=== PATIENT | female | born 1945 | race Caucasian/White ===

== ENCOUNTER 2020-07-02 11:05 | Inpatient (IN) | payer MEDICARE ==
[~2020-07-02] VITALS: Ht 157.5 cm; Wt 70.5 kg
--- NOTE | ~2020-07-02 | HEMODYNAMI ---
PATIENT:RAMON LAMBERT MEDICAL RECORD: [id number] : 43 LOCATION:[facility] D.2116 ADMISSION DATE: 07/02/20 Generatedon:07/03/202012:08 Patient name: RAMON LAMBERT Patient #: [id number] SSN: [id number] : 1945 Date of study: 07/03/2020 Page: Of Hemodynamic Procedure Report Patient Data Patient Demographics First Name: RAMON Gender: Female Last Name: PETRA : 1945 Patient #: [id number] Age: 75 year(s) Race: Unknown SSN: [id number] Additional ID: [id number] Contact details [address]: [address] [place] [address] State: [place] City: [place] Zip code: [address] Past Medical History Allergies Allergen Reaction Date Comments Reported Other allergy 07/03/2020 TRAMADOL, Admission Admission Data Admission Date: 07/02/2020 Admission Time: 14:34 Arrival Date: 07/03/2020 Arrival Time: 0:00 Admit Source: Other Insurance Payor: Medicare Room #: D.2116 Height (in.): 61.81 BSA: 1.71 (m2) Height (cm.): 157 BMI: 28.4 (kg/m2) Weight (lbs.): 154.32 Weight (kg.): 70 Lab Results Lab Result Date: 07/03/2020 Lab Result Time: 0:00 Biochemistry Name Units Result Min Max BUN mg/dl 14 --(--*-)-- 7 18 Creatinine mg/dl 0.8 --(-*--)-- 0.6 1.3 eGFR ml/min 73.97225 *-(----)-- 90 120 NONAFRICAN CBC Name Units Result Min Max Hemoglobin g/dl 13.5 --(*---)-- 13.5 17.5 Procedure Procedure Types Cath Procedure Diagnostic Procedure LHC LHC w/Coronaries Procedure Description Procedure Date Procedure Date: 07/03/2020 Procedure Start Time: 11:58 Procedure End Time: 12:06 Procedure Staff Name Function Troy Wynn MD Performing Physician Nereida Teresa RT Monitor Sarah Rucker RN Nurse Heydi Nava RT Scrub Indication Chest pain Procedure Data Cath Procedure Fluoroscopy Diagnostic fluoroscopy Total fluoroscopy Time: 0.9 time: 0.9 min min Diagnostic fluoroscopy Total fluoroscopy dose: 242 dose: 242 mGy mGy Contrast Material Contrast Material Type Amount (ml) Isovue 300 50 Entry Location Entry Primary Successful Side Size Upsize Upsize Entry Closure Succes sful Closure Location (Fr) 1 (Fr) 2 (Fr) Remarks Device Remarks Femoral Right 5 Fr Exoseal artery Estimated blood loss: 10 ml Diagnostic catheters Device Type Used For End Catheter Placement MULTIPACK JL 4.0 5Fr Procedure catheter MULTIPACK 3DRC 5Fr Procedure catheter MULTIPACK Pigtail 5 Fr Ventriculography catheter Procedure Complications No complications Procedure Medications Medication Administration Route Dosage 0.9% NaCl I.V. 100 ml/hr Lidocaine 2% added to field 20 Heparin Flush Bag added to field 2 bags (1000units/500ml NS) Oxygen NC 2 l/min Versed I.V. 1 mg Fentanyl I.V. 50 mcg Versed I.V. 0.5 mg Fentanyl I.V. 25 mcg Hemodynamics Rest BSA: 1.71 (m2) HGB: 13.5 (g/dl) O2 Consumption: Estimated: 148.28 (ml/min) O2 Co nsumption indexed: Estimated:86.71 (ml/min/m) Heart Rate: 59 (bpm) Pressure Samples Time Site Value (mmHg) Purpose Heart Use Rate(bpm) 12:02 LV 99/6,14 Snapshot 64 12:02 AO 107/53(79) Pullback 65 12:02 LV 105/4,14 Pullback 65 Gradients Valve Time Site 1 Site 2 Mean SEP/DFP Peak To Heart Use (mmHg) (sec/min) Peak Rate (mmHg) (bpm) Aortic 12:02 LV AO 0 17 0 65 105/4,14 107/53(79) Calculations Valve P-P Mean Valve Index Valve Source Name Gradient Area Flow (cm2) Aortic 0 0 0 0 Snapshots Pre Cath Intra NCS Post Cath Vital Signs Time Heart Resp SPO2 etCO2 NIBP (mmHg) Rhythm Pain Sedation Rate (ipm) (%) (mmHg) Status Level (bpm) 11:45:29 68 26 97 0 127/73(114) NSR 0 (11) 10(A) , No pain 11:49:41 62 17 96 28.7 130/82(110) NSR 0 (11) 10(A) , No pain 11:53:57 60 15 99 33.2 128/75(93) NSR 0 (11) 10(A) , No pain 11:58:13 62 9 92 24.9 109/72(85) NSR 0 (11) 9(A) , No pain 12:02:17 72 12 93 12.8 114/83(93) NSR 0 (11) 9(A) , No pain 12:06:31 61 9 91 9 102/64(76) NSR 0 (11) 10(A) , No pain Medications Time Medication Route Dose Verified Delivered Reason Notes Effe ctiveness by by 11:54:12 0.9% NaCl I.V. 100 Troy Sarah used for ml/hr Tianna Chaim procedure MD ARRIAGA 11:54:22 Lidocaine 2% added 20ml Troy Sarah for local to vial Tianna Chaim anesthetic field MD RARIAGA 11:54:34 Heparin Flush added 2 Troy Sarah used for Bag to bags Tianna Chaim procedure (1000units/500ml field VAZQUEZ RN NS) 11:54:44 Oxygen NC 2 Troy Sarah for low 02 l/min Tianna Chaim sats MD ARRIAGA 11:58:41 Versed I.V. 1 mg Troy Sarah for Tianna Chaim sedation MD ARRIAGA 11:58:47 Fentanyl I.V. 50 Troy Sarah for mcg Tianna Chaim sedation MD ARRIAGA 12:02:05 Versed I.V. 0.5 Troy Sarah for mg Tianna Chaim sedation MD ARRIAGA 12:02:16 Fentanyl I.V. 25 Troy Sarah for mcg Tianna Chaim sedation MD ARRIAGAcoin purse framer Log Time Note 11:33:14 Arrival Date: 07/03/2020 12:00:00 AM 11:33:16 Admit Source: Other 11:33:20 Insurance Payor : Medicare 11:33:26 Patient Height : 61.81 inches 11:33:31 Patient Weight : 154.32 lbs 11:34:03 Lab Result : Hemoglobin 13.5 g/dl 11:34:03 Lab Result : eGFR NONAFRICAN 73.95499 ml/min 11:34:03 Lab Result : BUN 14 mg/dl 11:34:03 Lab Result : Creatinine 0.8 mg/dl 11:34:10 Diagnostic Cath Status : Urgent 11:35:04 Indication : Chest pain 11:35:19 Procedure Status Urgent Heart Cath (IP). 11:35:22 Heydi Nava RT(R) (CV) sent for patient. Start room use. 11:35:24 Time tracking: Regular hours (M-F 7:00 - 5:00) 11:35:29 Plan of Care:Hemodynamics will remain stable., Cardiac rhythm will remain stable., Comfort level will be maintained., Respiratory function will remain adequate., Patient/ family verbilizes understanding of procedure., Procedure tolerated without complication., Recovers from procedure without complications.. 11:35:35 Patient received from Med II to CCL 1 Alert and oriented. Tansferred to table in Supine position. 11:35:37 Warm blankets applied, and fransisco hugger turned on for patient comfort. 11:35:37 Correct patient and procedure confirmed by team. 11:35:38 ECG and BP/O2 sat monitors applied to patient. 11:35:54 H&P Date Dictated: 07/02/2020 Within 30 days and on chart., H&P Addendum completed by physician on day of procedure. (MUST COMPLETE FOR ALL OUTPATIENTS). 11:35:56 Pre-procedure instructions explained to patient. 11:35:59 Family in patients room. 11:36:02 Patient NPO since Midnight. 11:36:34 Patient allergic to Other allergyTRAMADOL, 11:36:38 Is the patient allergic to Iodine/contrast media? No. 11:36:44 Is patient on blood thinner?No 11:37:03 Patient diabetic? No. 11:37:08 Snore? Unknown 11:37:10 Sleep apnea? No 11:37:29 Patient pain scale 0/10 ?. 11:37:39 IV left forearm D/C'd due to infiltration. 11:37:43 Lab results completed and on chart. 11:37:52 Right Radial & Right Groin area was prepped with chlora-prep and draped in sterile fashion 11:37:53 Sharps counted by scrub and verified by R.N. 11:37:58 Physician paged 11:39:40 Use device set Femoral Dx 11:44:20 Vital chart was started 11:44:21 Baseline sample Acquired. 11:44:25 Rhythm: sinus rhythm 11:44:27 Full Disclosure recording started 11:53:38 Zero performed for pressure channel P1 11:54:12 0.9% NaCl 100 ml/hr I.V. was administered by Sarah Rucker RN; used for procedure; Verbal order read back and verified. 11:54:22 Lidocaine 2% 20ml vial added to field was administered by Sarah Rucker RN; for local anesthetic; Verbal order read back and verified. 11:54:34 Heparin Flush Bag (1000units/500ml NS) 2 bags added to field was administered by Sarah Rucker RN; used for procedure; Verbal order read back and verified. 11:54:44 Oxygen 2 l/min NC was administered by Sarah Rucker RN; for low 02 sats; Verbal order read back and verified. 11:57:52 --------ALL STOP TIME OUT------ 11:57:53 Final Timeout: patient, procedure, and site verified with staff and physician. All members of the team are in agreement. 11:57:56 Right groin site verified by team. 11:58:06 Fire Safety Assessment: A--An alcohol-based skin anteseptic being used preoperatively., C--Open oxygen or nitrous oxide is being used., D--An ESU, laser, or fiber-optic light is being used. 11:58:11 Physical assessment completed. ASA score P 2 - A patient with mild systemic disease as per Troy Wynn MD. 11:58:15 2) 60-89 Mildly reduced kidney function, and other findings (as for stage 1) point to kidney disease. 11:58:21 Maximum allowable contrast dose (3.7 X eGFR X 0.75)220 ml. 11:58:30 Sedation plan: IV Moderate Sedation Medication:Versed, Fentanyl 11:58:36 Procedure started. 11:58:41 Versed 1 mg I.V. was administered by Sarah Rucker RN; for sedation; Verbal order read back and verified. 11:58:47 Fentanyl 50 mcg I.V. was administered by Sarah Rucker RN; for sedation; Verbal order read back and verified. 11:58:55 Local anesthetic to right femoral artery with Lidocaine 2% by Troy Wynn MD.INITIAL ACCESS ONLY 11:59:06 A 5 Fr sheath was inserted into the Right Femoral artery 11:59:17 J wire advanced. 11:59:21 ACIST Syringe (37428) opened to sterile field. 11:59:22 Bag Decanter (2002S) opened to sterile field. 11:59:22 Medline Cath Pack ([id number]) opened to sterile field. 11:59:29 A MULTIPACK JL 4.0 5Fr catheter was advanced over the wire and used for Procedure. 11:59:31 ACIST Hand Control (16056) opened to sterile field. 11:59:32 ACIST Manifold (34771) opened to sterile field. 11:59:32 DIAGNOSTIC Multipack 5Fr catheter set (EI6764) opened to sterile field. 11:59:34 SHEATH 5FR Somers (WLU640) opened to sterile field. 11:59:35 EMERALD Guide Wire (470-560) opened to sterile field. 11:59:50 LCA angiography performed. 12:00:08 Catheter removed. 12:00:17 A MULTIPACK 3DRC 5Fr catheter was advanced over the wire and used for Procedure. 12:00:42 RCA angiography performed. 12:01:23 Catheter removed. 12:01:37 A MULTIPACK Pigtail 5 Fr catheter was advanced over the wire and used for Ventriculography. 12:01:44 EXOSEAL 5Fr (EX500) opened to sterile field. 12:01:47 Tegaderm 4 x 4 (1626W) opened to sterile field. 12:02:05 Versed 0.5 mg I.V. was administered by Sarah Rucker RN; for sedation; Verbal order read back and verified. 12:02:16 Fentanyl 25 mcg I.V. was administered by Sarah Rucker RN; for sedation; Verbal order read back and verified. 12:02:52 EF : 55 % 12:03:02 LV gram done using RAMIREZ 12:03:05 Catheter removed. 12:03:45 Sheath removed intact; hemostasis achieved with Exoseal to the Right Femoral artery. 12:03:48 Procedure ended.(Physican Out) 12:04:02 Fluoroscopy time 00.90 minutes. 12:04:15 Fluoroscopy dose: 242 mGy 12:04:15 Flurop Dose total: 242 12:04:21 Dose Area Product 34285 mGy/cm. 12:04:28 Contrast amount:Isovue 300 50ml. 12:04:32 Maximum allowable dose exceeded? No. 12:04:36 Insertion/operative site no bleeding no hematoma. 12:04:43 Post right femoral artery:stable 12:04:48 Post-procedure physical assessment completed. ASA score P 2 - A patient with mild systemic disease as per Troy Wynn MD. 12:04:52 Post procedure rhythm: unchanged. 12:04:58 Estimated blood loss: 10 ml 12:05:00 Post procedure instruction explained to patient.Patient verbalizes understanding. 12:05:33 Procedure and supply charges have been captured, reviewed, submitted and are correct. 12:06:00 Procedure Complication : No complications 12:06:08 Vital chart was stopped 12:06:10 [facility] Findings: mild to moderate CAD (<70%) 12:06:13 Operative report dictated upon procedure completion. 12:06:14 See physician's report for complete and final results. 12:06:18 Report given to [facility] II. 12:06:27 Patient transfered to Med II with Bed. 12:06:30 Procedure ended. 12:06:30 Full Disclosure recording stopped 12:06:38 End room use (Document Last) 12:07:26 End room use (Document Last) 12:08:02 End room use (Document Last) Device Usage Item Name Manufacture Quantity Catalog Hospital Part Current Minimal L ot# / Number Charge Number Stock Stock Serial# Code ACIST Acist 1 66586 686825 387012 350336 20 Syringe Medical (59672) Systems Inc Bag Microtek 1 133900 10864 149011 5 Decanter Medical Inc. () Medline Medline 1 [id number] 220103 81490 955630 5 Cath Pack ([id number]) MULTIPACK Cardinal 1 038313 5 JL 4.0 5Fr Health catheter ACIST Hand Acist 1 82722 170456 041231 926443 5 Control Medical (33264) Systems Inc ACIST Acist 1 20088 911915 646033 955662 5 Manifold Medical (71728) Systems Inc DIAGNOSTIC Cardinal 1 PF1573 685707 99432 605126 30 Multipack Health 5Fr catheter set (EL5512) SHEATH 5FR Terumo 1 IOK774 204052 090418 157760 5 Somers (IDB856) EMERALD Cardinal 1 502-455 496061 340987 650175 5 Guide Wire [facility] (502-455) MULTIPACK Cardinal 1 365799 5 3DRC 5Fr Health catheter MULTIPACK Cardinal 1 619154 5 Pigtail 5 Health Fr catheter EXOSEAL 5Fr Cardinal 1 EX500 428955 646082 049854 10 (EX500) Health Tegaderm 4 3M 1 1626W 391264 061599 458710 5 x 4 (1626W) Signature Audit Patterson Stage Time Signature Unsigned Intra-Procedure 07/03/2020 Nereida Teresa 12:07:26 PM RT(R) Intra-Procedure 07/03/2020 Sarah 12:08:02 PM Chaim RN Intra-Procedure 07/03/2020 Troy Santamaria 12:08:47 PM Buddy VAZQUEZ [facility] [address] [place] [address]
[2020-07-02] MEDS ORDERED: PRAVASTATIN (11:28)
[2020-07-02] MEDS ORDERED: VITAMINS/SUPPLEMENTS (11:29)
[2020-07-02] MEDS ORDERED: OMEPRAZOLE20 M1 (11:29)
[2020-07-02 11:49] VITALS: BP 110/72
[2020-07-02 12:13] LABS: BASOPHILS 0.2 % (0-2); EOSINOPHILS 0.9 % (0-7); HEMATOCRIT 40.2 % (36.0-48.0); HEMOGLOBIN 13.4 g/dL (12-16); IMMATURE GRANULOCYTES 0.2 % (0-5); LYMPHOCYTES 22.9 % (15-50); MCH 32.6 pg (26.0-34.0); MCHC 33.3 g/dL (31.0-37.0); MCV 97.8 fL (80.0-100.0); MEAN PLATELET VOLUME 10.7 fL (7.4-10.4); MONOCYTES 10.2 % (2-11); NEUTROPHILS 65.6 % (40-80); PLATELET COUNT 227 10x3/uL (130-400); RBC 4.11 10x6/uL (4.00-5.40); RDW 13.8 % (11.5-14.5); WBC 5.8 10x3/uL (4.8-10.8)
[2020-07-02 12:20] LABS: APTT 31.9 SECONDS (22.8-39.4); INR 0.95 (0.85-1.17); PROTIME 12.6 SECONDS (11.6-15.0)
[2020-07-02 12:30] VITALS: BP 105/68
[2020-07-02 12:30] LABS: CALC OSMOLALITY 272 mosm/kg (275-300); CALCIUM 9.2 mg/dL (8.5-10.1); CARBON DIOXIDE 28.1 mmol/L (21.0-32.0); CHLORIDE - SERUM 102 mmol/L (98-107); CREATININE - SERUM 0.8 mg/dL (0.6-1.3); GLUCOSE 145 mg/dL (74-106); POTASSIUM - SERUM 3.9 mmol/L (3.5-5.1); SODIUM 135 mmol/L (136-145); UREA NITROGEN 12 mg/dL (7-18); eGFR NON AFRICAN AMERICAN 74 mL/min (90-120)
[2020-07-02 12:37] LABS: ALBUMIN 3.4 g/dL (3.4-5.0); ALKALINE PHOSPHATASE 85 U/L (30-120); ALT (SGPT) 24 U/L (10-68); CKMB 2.4 U/L (0.0-3.6); CREATINE KINASE 102 UL (21-215); MAGNESIUM - SERUM 1.8 mg/dL (1.8-2.4); PROTEIN - SERUM 7.1 g/dL (6.4-8.2); TROPONIN-I 0.034 ng/mL (0.000-0.060)
[2020-07-02 12:58] VITALS: BP 108/60
[2020-07-02 15:06] VITALS: BP 111/75
[2020-07-02 18:41] LABS: T4 THYROXIN - FREE 0.84 ng/dL (0.76-1.46); THYROID STIMULATING HORMONE 1.36 uIU/mL (0.36-3.74)
--- NOTE | 2020-07-02 19:28 | NUR ---
COVID SWAB DONE AND SENT TO LAB
--- NOTE | 2020-07-02 20:16 | NUR ---
ATTEMPTED TO CALL REPORT, NURSE NOT AVAILABLE
--- NOTE | 2020-07-02 20:34 | NUR ---
RECEIVED REPORT FROM MERI IN ER, PT CARE ASSUMED. AWAITING PT'S ARRIVAL TO ROOM 4746.
--- NOTE | 2020-07-02 21:43 | NUR ---
PT ARRIVED TO ROOM VIA WHEELCHAIR
--- NOTE | 2020-07-02 22:40 | NUR ---
PT CONVERTED TO NORMAL SINUS RHYTHM HR 72, PER RUBBER COVERING MACHINE OPERATOR.
[2020-07-03 01:06] VITALS: BP 135/77; Ht 157.5 cm; Wt 70.5 kg
--- NOTE | 2020-07-03 01:54 | NUR ---
DENIES CHEST PAIN AT THIS TIME.
--- NOTE | 2020-07-03 03:22 | NUR ---
NORMAL SINUS 56, PER ASSOCIATE SOFTWARE DEVELOPMENT ENGINEER, BP 91/44, RR 14 98% ON RA. SPOKE WITH DR. VICK, RECIEVED ORDERS TO STOP CARDIZEM GTT AT THIS TIME. WILL CTM.
[2020-07-03 04:35] VITALS: BP 113/59
[2020-07-03 07:34] LABS: BASOPHILS 0.2 % (0-2); EOSINOPHILS 1.5 % (0-7); HEMATOCRIT 41.6 % (36.0-48.0); HEMOGLOBIN 13.5 g/dL (12-16); LYMPHOCYTES 39.3 % (15-50); MCH 32.5 pg (26.0-34.0); MCHC 32.5 g/dL (31.0-37.0); MEAN PLATELET VOLUME 11.3 fL (7.4-10.4); PLATELET COUNT 252 10x3/uL (130-400); RBC 4.16 10x6/uL (4.00-5.40); RDW 14.2 % (11.5-14.5); WBC 5.2 10x3/uL (4.8-10.8)
[2020-07-03 07:53] LABS: ALBUMIN 3.3 g/dL (3.4-5.0); ANION GAP 8.3 mmol/L (8-16); BILIRUBIN - TOTAL 0.33 mg/dL (0.2-1.3); CALCIUM 8.5 mg/dL (8.5-10.1); CARBON DIOXIDE 27.6 mmol/L (21.0-32.0); CREATININE - SERUM 0.8 mg/dL (0.6-1.3); POTASSIUM - SERUM 3.9 mmol/L (3.5-5.1)
[2020-07-03 07:55] LABS: TROPONIN-I 0.068 ng/mL (0.000-0.060)
[2020-07-03 09:27] LABS: CHOL - HDL RATIO 2.4 ratio (2.3-4.1); LDL-HDL RATIO 1.1 ratio (1.5-3.5)
--- NOTE | 2020-07-03 09:38 | NUR ---
PRE-OP MEDS GIVEN AT THIS TIME. PT DENIES ANY NEEDS AT THIS TIME. CALL LIGHT IN REACH, NAD NOTED, WILL CONTINUE PLAN OF CARE.
[2020-07-03 09:39] VITALS: BP 153/83
--- NOTE | 2020-07-03 11:36 | NUR ---
PT TO MEDICAL AFFAIRS MANAGER.
--- NOTE | 2020-07-03 12:30 | NUR ---
RECEIVED PT BACK TO ROOM 2116, PT A/O X4. VITALS SIGNS STABLE, PLACED PT ON FREQUENT VITALS SIGNS. RT GROIN DRESSSING CDI, NO S/S OF BLEEDING OR HEMATOMA. PT DENIES ANY NEEDS AT THIS TIME. CALL LIGHT IN REACH, NAD NOTED, WILL CONTINUE TO MONITOR.
[2020-07-03] MEDS ORDERED: DILTIAZEM 24HR180 M4 PO (13:15)
--- NOTE | 2020-07-03 15:12 | NUR ---
PROVIDED VERBAL AND WRITTEN DISCHARGE TEACHING TO PT, WHO VERBALIZED UNDERSTANDING REGARDING TEACHING. D/C RT HAND IV WITH CATHETER TIP INTACT. HEART MONITOR REMOVED AND TAKEN TO PUBLIC WORKS COMMISSIONER. PT LEFT UNIT VIA WHEELCHAIR, WITH ALL BELONGINGS.
--- NOTE | 2020-07-03 16:25 | MORECARE ---
CASE MANAGEMENT DISCHARGE SUMMARY PATIENT: RAMON LAMBERT UNIT: [id number] ADM DATE: 07/02/20 AGE: 75 : [birth year] SEX: F ROOM/BED: D.5078 AUTHOR: TUSHAR LI PHYSICIAN: REFERRING PHYSICIAN: SHERIF PETER MD DATE OF SERVICE: 07/03/20 Discharge Plan Patient Name: RAMON LAMBERT Facility: [facility]:[place] : 1945 Planned Disposition: Home Anticipated Discharge Date: 07/03/20 Discharge Date: 07/03/2020 Expected LOS: 1 Initial Reviewer: [email or web address] Initial Review Date: 07/02/2020 Generated: 07/03/20 5:24 pm Comments DCP- Discharge Planning Updated by [email or web address]: Promise Manriquez on 07/03/20 3:[address] CM met with the patiet for DC planning. Patient is in agreement to same. PCP: None-has not established with a MD as yet. Pharmacy: Has not established. patient states she has a 3 month supply of her medications, so should not need a pharmacy. DME: None. CM discussed HHS, rehab, SNF with patient and she verifies that she does not need any of these services. Patient has recently moved from [place] in order to assist her son, in order to assist with the care of his . Patient states she plans to return to her son's home today and voices no needs.. Patient Name: RAMON LAMBERT Page [id number] at 1625 All edits/amendments must be made on the electronic document DICTATION DATE: 07/03/201623 SUPERVISOR TELEPHONE CLERKS: GABRIEL 07/03/201623 RPT#: [id number] DC DATE:07/03/20 STATUS: DIS IN [facility] [address] [place] [address] END OF REPORT
--- NOTE | 2020-07-04 08:59 | OP ---
PATIENT NAME: RAMON LAMBERT MEDICAL RECORD: [id number] :43 LOCATION:D.M2 D.6 ADMISSION DATE:07/02/20 SURGEON: MARCUS SADLER MD DATE OF OPERATION: 07/03/2020 PROCEDURE: Left heart cath, selective coronary angiography, right femoral artery approach. CATHETERS: A 5-Indonesian sheath, 5/4 left and right Juan, 5/4 pig. The procedure was well tolerated. The patient returned to pelletier, sheath removed. ExoSeal device placed. FINDINGS: Left ventriculography in 30-degree RAMIREZ view: Normal wall motion and normal systolic function. CORONARY ANATOMY: LEFT MAIN: Left main is free of disease. LAD: Free of disease in the diagonal system. CIRCUMFLEX: Free of disease in the marginal system. RIGHT CORONARY ARTERY: Dominant artery, gives rise to PDA, free of disease. IMPRESSION: Normal left ventricular systolic function. Normal coronary artery anatomy. TRANSINT:[id number] Voice Confirmation ID: [id number] DOCUMENT ID: [id number] MARCUS SADLER MD at 0859 CC: [id number] DICTATION DATE: 07/03/20 1211 ELECTRONICS LEAD: 07/03/202132 DIS IN 07/03/20 [facility] [address] [place] [address]
--- NOTE | 2020-07-04 08:59 | CN ---
PATIENT NAME:RAMON LAMBERT MEDICAL RECORD: [id number] : 43 LOCATION:. D.2116 ADMIT DATE: 07/02/20 ACCOUNT: [id number] CONSULTING PHYSICIAN: MARCUS SADLER MD REFERRING PHYSICIAN: SHERIF PETER MD DATE OF CONSULTATION: 07/03/2020 HISTORY OF PRESENT ILLNESS: A 75-year-old female with no known history of coronary artery disease, has a history of dyslipidemia, presented to the ER with angina, chest tightness, pressure, found to be in atrial fibrillation with RVR, ST-T segment changes converted with Cardizem drip. No previous history of atrial fibrillation in the past. Subsequently, cardiac enzymes found to be positive consistent with NSTEMI, difficult to fully elucidate type 1 versus type 2. We are asked to see her concerning his cardiovascular status. PAST MEDICAL HISTORY: 1. History of hypertension. 2. Hyperlipidemia. MEDICATIONS: Include Pravastatin 80 mg p.o. every day and aspirin 1 daily. ALLERGIES: TRAMADOL. SOCIAL HISTORY: Nonsmoker, nondrinker, was moved here to assist with taking care of her daughter. Mother has Alzheimer's. Previous exercise but none since moved. REVIEW OF SYSTEMS: The patient reports easy bruising but reports no swollen glands. The patient reports no fever, no night sweats, no significant weight gain, no significant weight loss. No significant exercise tolerance. The patient reports no dry eyes, no irritation, no vision change. Patient reports no difficulty hearing and no ear pain. Patient reports no frequent nose bleeds or nose and sinus problems. Patient reports on arm pain on exertion. No shortness of breath while lying down. No history of heart murmur. Patient reports no cough, no wheezing or coughing up blood. Patient reports no abdominal pain, no vomiting. Normal appetite. No diarrhea and not vomiting blood. No nausea and no constipation. Patient reports no incontinence. No difficulty urinating. No hematuria. No increased frequency. Patient reports no muscle aches. No weakness, no arthralgias, no back pain. No swelling of the extremities. Patient reports no abnormal mole, no jaundice, no rashes. Reports no loss of consciousness. No weakness and no numbness. No seizures, dizziness, or headaches. The patient reports no depression, no sleep disturbance, feeling safe in a relationship and no alcohol abuse. Patient reports on fatigue. Reports no runny nose or sinus pressure. No itching, no hives, and no frequent sneezing. PHYSICAL EXAMINATION: GENERAL: Pleasant. No acute distress, appears younger than stated age. VITAL SIGNS: Blood pressure 113/59, pulse 63 and regular. HEENT: Normocephalic, atraumatic. NECK: No JVD or bruit. HEART: Regular. LUNGS: Good air excursion. ABDOMEN: Soft, nontender. EXTREMITIES: Pulses 2+ with no edema. CONSULT REPORT [id number] RAMON LAMBERT DIAGNOSTIC DATA: EKG shows no acute ECG changes inferolaterally. IMPRESSION: NSTEMI. We will plan for angiography, intervention based on above. TRANSINT:[id number] Voice Confirmation ID: [id number] DOCUMENT ID: [id number] MARCUS SADLER MD at 0859 CC: [id number] DICTATION DATE: 07/03/20916 PAYROLL ACCOUNTING MANAGER: 07/03/202038 DIS IN 07/03/20 [facility] [address] [place] [address]
== END 2020-07-03 15:28 | disposition home or self-care (01) | DRG 282 ==
LOC: D.ER 11:05 → D.M2 14:34 → D.EDHOLD 14:34 → D.M2 19:14
PROVIDERS: Family Medicine; Internal Medicine Interventional Cardiology; ADMIT Family Medicine; ATTEND Family Medicine
PROC: B2151ZZ Fluoroscopy of Left Heart using Low Osmolar Contrast (ICD-10-PCS; 2020-07-03)
PROC: 4A023N7 Measurement of Cardiac Sampling and Pressure, Left Heart, Percutaneous Approach (ICD-10-PCS; 2020-07-03)
PROC: B2111ZZ Fluoroscopy of Multiple Coronary Arteries using Low Osmolar Contrast (ICD-10-PCS; principal; 2020-07-03 11:30)
DX: I21.4 Non-ST elevation (NSTEMI) myocardial infarction (principal); I48.91 Unspecified atrial fibrillation; E78.5 Hyperlipidemia, unspecified; K21.9 Gastro-esophageal reflux disease without esophagitis